=== PATIENT | male | born 1975 | race Caucasian/White ===

== ENCOUNTER 2016-11-22 08:55 | Emergency (ER) ==
[2016-11-22 09:03] VITALS: BP 135/89; TEMP 97.9; BMI 25.0
[2016-11-22] MEDS ORDERED: TORADOL IM STA (09:17)
[2016-11-22] MEDS ORDERED: NORFLEX IM STA (09:17)
[2016-11-22 09:32] LABS: BASOPHILS % (AUTO) 0.4 % (0.0-3.0); EOSINOPHILS # (AUTO) 0.1 K/ul (0.0-0.7); EOSINOPHILS % (AUTO) 0.5 % (0.0-7.0); HEMATOCRIT 42.7 % (42.0-52.0); HEMOGLOBIN 14.7 g/dl (14.0-18.0); IMMATURE GRANULOCYTE % (AUTO) 0.6 % (0.0-5.0); LYMPHOCYTES # (AUTO) 2.1 K/uL (0.60-3.4); LYMPHOCYTES % (AUTO) 18.8 (10.0-50.0); MEAN CORPUSCULAR HGB CONC 34.4 (31.8-35.4); MEAN CORPUSCULAR VOLUME 87.1 fl (80.0-94.0); MONOCYTES # (AUTO) 1.2 K/uL (0.4-2.0); MONOCYTES % (AUTO) 10.3 (0-10); NEUTROPHILS # (AUTO) 7.7 K/ul (2.0-6.9); NEUTROPHILS % (AUTO) 69.4; PLATELET COUNT 314 10^3/uL (140-440); WHITE BLOOD COUNT 11.12 K/ul (4.2-10.2)
[2016-11-22 10:05] LABS: ALANINE AMINOTRANSFERASE 25 U/L (12-78); ALBUMIN 4.1 g/dL (3.4-5.0); ALBUMIN/GLOBULIN RATIO 1.24; ALKALINE PHOSPHATASE 74 U/L (50-136); ANION GAP 13.8; ASPARTATE AMINO TRANSFERASE 16 U/L (15-37); BILIRUBIN,TOTAL 0.39 mg/dL (0.00-1.20); BLOOD UREA NITROGEN 14 mg/dL (7-18); BUN/CREATININE RATIO 14.58; CALCIUM 9.6 mg/dL (8.2-10.2); CARBON DIOXIDE 25 mmol/L (21-32); CHLORIDE 106 mmol/L (98-107); CREATINE KINASE 83 U/L; CREATININE 0.96 mg/dL (0.60-1.10); GLUCOSE 93 mg/dL (70-100); POTASSIUM 3.8 mmol/L (3.5-5.1); SODIUM 141 mmol/L (136-145); TOTAL PROTEIN 7.4 g/dL (6.4-8.2)
[2016-11-22 10:07] LABS: ERYTHROCYTE SEDIMENTATION RATE 9 mm/hr (0-15); ESR INTERNAL QC INTERNAL QC VALID
--- NOTE | 2016-11-22 10:11 | DI ---
EXAM: Two views of the chest. History: Cough. Findings: Heart size is normal. No focal consolidation. No appreciable pleural fluid and no pneum othorax. No acute osseous abnormalities. Impression: No acute cardiopulmonary process.
--- NOTE | 2016-11-22 10:24 | CT ---
EXAM: CT of the head without contrast History: Headache. Technique: Multiplanar CT images through the head were obtained without the administration of IV co ntrast Findings: The visualized paranasal sinuses and mastoid air cells are clear in general. No acute ca lvarial abnormalities. Intracranially the ventricular and cisternal spaces are normal in size, shape and configuration for a patient of this age. No dominant mass or midline shift. No hydrocephalous. No acute intracrania l hemorrhage or abnormal extraaxial fluid collections. Impression: No acute intracranial process.
--- NOTE | 2016-11-22 10:34 | ED.PDOC ---
General ED Provider: Dr. IAN CHASE-ER Chief Complaint: Headache Stated Complaint: my head hurts on one side and my vision was affected--im better now Time Seen by Physician: 09:00 Mode of Arrival: Walk-In Information Source: Patient Exam Limitations: No limitations Primary Care Provider: CODIE RUEDA Nursing and Triage Documentation Reviewed and Agree: Yes Neurological Complaint Exam - Headache Complaint/Exam Onset: Gradual Duration: 2hrs Symptoms Are: Still present Timing: Constant Worst Headache Ever: No Initial Severity: Mild Current Severity: Moderate Location: Right, Frontal, Temporal, Parietal Character: Reports: Dull, Throbbing, Pressure, Typical headache, Migraine Aggravating: Reports: Bright lights Alleviating: Reports: None Associated Signs and Symptoms: Reports: Nausea, Neck pain. Denies: Dizziness, Seizure, Vomiting, Sinus pressure, Fever, Neck stiffness, Decreased LOC, Visual changes Related History: Reports: Similar episode Related Surgical History: Reports: None SAH Risk Factors: Reports: None Meningitis Risk Factors: Reports: None SDH Risk Factors: Reports: Male Temporal Arteritis Risk Factors: Reports: Normal Head CT Within Last 12 Months: No Fundoscopic Exam: Present: Normal Findings Papilledema Present: No Temporal Artery Tenderness: Present: None Sinus Tenderness: Present: None TMJ Tenderness: Present: None Glascow Coma Scale (see protocol): 15 Meningeal Signs Positive: No Pain on Passive Flexion-Positive Kernig's: No ROM Limited In: No Limitiations Focal Weakness: Present: None Focal Sensory Loss: Present: None Gait: Normal Nystagmus Present: No Gag Reflex Present: Yes [id number]: Normal Findings Romberg Test Positive: No Babinski Sign: Negative Right, Negative Left Heel to Toe Normal: Yes Differential Diagnoses: Migraine Review of Systems - Review Of Systems Constitutional: Reports: No symptoms Eyes: Reports: No symptoms Ears, Nose, Mouth, Throat: Reports: No symptoms Respiratory: Reports: No symptoms Cardiac: Reports: No symptoms GI: Reports: No symptoms : Reports: No symptoms Musculoskeletal: Reports: No symptoms Skin: Reports: No symptoms Neurological: Reports: Headache Endocrine: Reports: No symptoms Hematologic/Lymphatic: Reports: No symptoms All Other Systems: Reviewed and Negative Past Medical History - Past Medical History Endocrine: Reports: Unknown Cardiovascular: Reports: Unknown Respiratory: Reports: Unknown Hematological: Reports: Unknown Gastrointestinal: Reports: Unknown Genitourinary: Reports: Unknown Neuro/Psych: Reports: Unknown Musculoskeletal: Reports: Unknown Cancer: Reports: Unknown - Surgical History General Surgical History: Reports: Unknown - Family History Family History: Reports: Unknown - Social History Smoking Status: Dips snuff Hx Substance Use: No Alcohol Screening: None Lives: With family Physical Exam - Physical Exam Appearance: Well-appearing, No pain distress, Well-nourished Pain Distress: Moderate Eyes: DEVAUGHN, EOMI, Conjunctiva clear ENT: Ears normal, Nose normal, Oropharynx normal Neck: Supple Respiratory: Airway patent, Breath sounds clear, Breath sounds equal, Respirations nonlabored Cardiovascular: RRR, Pulses normal, No rub, No murmur GI/: Soft, Nontender, No masses, Bowel sounds normal, No Organomegaly Musculoskeletal: Normal strength Skin: Warm, Dry, Normal color Neurological: Sensation intact, Motor intact, Reflexes intact, Cranial nerves intact, Alert, Oriented Psychiatric: Affect appropriate, Mood appropriate Interpretation - Radiology Interpretation Radiology Interpretation By: Radiologist Radiology Results: Negative Exam Interpreted: CXR, CT Scan Re-Evaluation - Re-Evaluation Time of Re-Evaluation: 10:35 Status: Improved Vital Signs Stable: No Pain Level: 0 Appearance: NAD Lungs: Clear Skin: Warm and Dry Neuro: Alert and Oriented X3 CV: RRR Critical Care Note - Critical Care Note Total Time (mins): 0 Course - Course Hematology/Chemistry: 11/22/16 09:29 11/22/16 09:29 Orders, Labs, Meds: Lab Review 11/22/16 09:29 WBC 11.12 H RBC 4.90 Hgb 14.7 Hct 42.7 MCV 87.1 MCH 30.0 MCHC 34.4 RDW Coeff of Martina 12.7 Plt Count 314 Immature Gran % (Auto) 0.6 Neut % (Auto) 69.4 Lymph % (Auto) 18.8 [place] % (Auto) 10.3 H Eos % (Auto) 0.5 Baso % (Auto) 0.4 Immature Gran # (Auto) 0.1 Neut # 7.7 H Lymph # 2.1 [place] # 1.2 Eos # 0.1 Baso # 0.0 ESR 9 Sodium 141 Potassium 3.8 Chloride 106 Carbon Dioxide 25 Anion Gap 13.8 BUN 14 Creatinine 0.96 Estimated GFR (MDRD) 86.00 BUN/Creatinine Ratio 14.58 Glucose 93 Calcium 9.6 Total Bilirubin 0.39 AST 16 ALT 25 Alkaline Phosphatase 74 Total Creatine Kinase 83 Troponin I < 0.0100 Total Protein 7.4 Albumin 4.1 Globulin 3.3 Albumin/Globulin Ratio 1.24 Orders Category Date Time Status EKG-(ED ONLY) Stat CARDIO 11/22/16 09:15 Completed [employer] [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] .ONCE EMERGENCY 11/22/16 09:16 Active CBC W/ AUTO DIFF Stat LAB 11/22/16 09:29 Completed COMPREHENSIVE METABOLIC PANEL Stat LAB 11/22/16 09:29 Completed CREATINE KINASE Stat LAB 11/22/16 09:29 Completed ESR Stat LAB 11/22/16 09:29 Completed TROPONIN I Stat LAB 11/22/16 09:29 Completed Ketorolac Tromethamine [Toradol] MEDS 11/22/16 09:17 Discontinued 60 mg IM ONCE STA Orphenadrine Citrate [Norflex] MEDS 11/22/16 09:17 Discontinued 60 mg IM ONCE STA CT HEAD W/O CONTRAST Stat RADS 11/22/16 09:16 Completed CXR [CHEST, 2 VIEWS PA & LAT] Stat RADS 11/22/16 09:17 Completed Medications Discontinued Medications Generic Name Dose Route Start Last Admin Trade Name Freq PRN Reason Stop Dose Admin Ketorolac Tromethamine 60 mg 11/22/16 09:17 11/22/16 09:47 Toradol IM 11/22/16 09:18 60 mg ONCE STA Administration Orphenadrine Citrate 60 mg 11/22/16 09:17 11/22/16 09:47 Norflex IM 11/22/16 09:18 60 mg ONCE STA Administration Vital Signs: Temp Pulse Resp BP Pulse Ox 11/22/16 08:56 97.9 F 51 L 16 135/89 98 Departure - Departure Time of Disposition: 10:35 Disposition: HOME SELF-CARE Discharge Problem: Headache Qualifiers: Headache type: other vascular headache Qualifier Code: (G44.1) Vascular headache, not elsewhere classified Instructions: Migraine Headache (ED) Condition: Good Pt referred to PMD for follow-up: Yes Additional Instructions: f/u with pcp Allergies/Adverse Reactions: Allergies No Known Allergies Allergy (Unverified 11/22/16 09:05) Home Medications: Ambulatory Orders Multivitamin [Multi-Vitamin Daily] 1 each PO DAILY 11/22/16 Pantoprazole Sodium [Protonix] 40 mg PO QDAC 11/22/16 Disposition Discussed With: Patient, Family
== END 2016-11-22 10:40 | disposition home or self-care (01) ==
LOC: ED 08:55
DX: G44.1 Vascular headache, not elsewhere classified (principal)
CPT/HCPCS: 36415; 80053; 82550; 84484; 85025; 85651; 93005; 93010; 96372; 99283